=== PATIENT | male | born 1960 | race American Indian/Alaskan Native ===

== ENCOUNTER 2020-05-23 14:37 | Emergency (ER) | payer OTHER ==
[~2020-05-23] VITALS: Ht 177.8 cm; Wt 80.7 kg
[2020-05-23] MEDS ORDERED: OMEP20ER PO (14:57)
[2020-05-23] MEDS ORDERED: MONDOXYNE NL100 MG PO (15:00)
== END 2020-05-23 15:10 | disposition home or self-care (01) ==
LOC: ER 14:37
DX: S10.96XA Insect bite of unspecified part of neck, initial encounter (principal); F17.210 Nicotine dependence, cigarettes, uncomplicated; Z79.899 Other long term (current) drug therapy; W57.XXXA Bitten or stung by nonvenomous insect and other nonvenomous arthropods, initial encounter
CPT/HCPCS: 99282